=== PATIENT | female | born 1985 | race African-American/Black ===

== ENCOUNTER 2023-04-05 19:30 | Emergency (ER) | payer MEDICAID ==
[~2023-04-05] VITALS: Ht 175.3 cm; Wt 103.0 kg
[2023-04-05] MEDS ORDERED: PredniSONE 20 MG TABLET PO ONE (20:15)
[2023-04-05] MEDS ORDERED: ALBUTEROL SULFATE HFA 90 MCG/PUFF 8 GM INHALER IH ONE (20:15)
[2023-04-05] MEDS ORDERED: GuaiFENesin/D-METHORPHAN [SUGAR-FREE] 200-20MG/10 ML SYRUP UDCUP PO ONE (20:15)
[2023-04-05] MEDS ORDERED: GUAIFDM PO (21:01)
[2023-04-05] MEDS ORDERED: ALBU18HF12 IH (21:01)
[2023-04-05 21:19] VITALS: BP 118/69; PULSE 74; RESP 20; TEMP 98.3
== END 2023-04-05 21:29 | disposition home or self-care (01) ==
LOC: EMS 19:32
DX: J45.901 Unspecified asthma with (acute) exacerbation (principal); E05.90 Thyrotoxicosis, unspecified without thyrotoxic crisis or storm; F17.210 Nicotine dependence, cigarettes, uncomplicated; F12.90 Cannabis use, unspecified, uncomplicated
CPT/HCPCS: 99283; 94640; J7512; J3535